=== PATIENT | female | born 1995 | race Caucasian/White ===

== ENCOUNTER 2016-10-15 05:39 | Emergency (ER) | payer OTHER ==
[2016-10-15 06:57] LABS: PLATELET COUNT 240 x10^3mcL (130-400)
[2016-10-15 06:59] LABS: CALCIUM 9.9 mg/dL (8.5-10.1); CARBON DIOXIDE 27.3 mmol/L (21-32); CHLORIDE SERUM 103 mmol/L (98-107); CREATININE SERUM 0.5 mg/dL (0.6-1.0); GFR1 > 60 mL/min; GLUCOSE SERUM 109 mg/dL (74-106); POTASSIUM SERUM 3.9 mmol/L (3.5-5.1); SODIUM SERUM 140 mmol/L (136-145)
[2016-10-15 07:00] LABS: UA SPECIFIC GRAVITY 1.025 (1.005-1.035); microscopic required? YES; urine erythrocyte 1+ (NEGATIVE)
[2016-10-15 07:03] LABS: ALBUMIN 3.9 g/dL (3.4-5.0); ALKALINE PHOSPHATASE 186 U/L (46-116); ALT/SGPT 39 U/L (14-59); AST/SGOT 37 U/L (15-37); BILIRUBIN TOTAL 0.7 mg/dL (0.20-1.00); LIPASE 90 IU/L (73-393)
[2016-10-15 07:05] LABS: BASOPHIL % 4.1 % (0-2)
[2016-10-15 07:19] LABS: TOTAL PROTEIN, SERUM 8.3 g/dL (6.4-8.2)
[2016-10-15 09:54] VITALS: BP 128/81
== END 2016-10-15 09:54 | disposition home or self-care (01) ==
LOC: ED 05:39
PROVIDERS: Emergency Medicine
DX: R10.13 Epigastric pain (principal); L71.0 Perioral dermatitis
CPT/HCPCS: J1885; J2405; J7030; Q0092

== ENCOUNTER 2017-01-13 01:00 | Emergency (ER) | payer OTHER ==
[2017-01-13 01:47] VITALS: BP 131/80
== END 2017-01-13 01:47 | disposition home or self-care (01) ==
LOC: ED 01:00
DX: S60.111A Contusion of right thumb with damage to nail, initial encounter (principal); X58.XXXA Exposure to other specified factors, initial encounter; Y93.89 Activity, other specified; Y99.8 Other external cause status; Y92.89 Other specified places as the place of occurrence of the external cause
CPT/HCPCS: 90715; A4570

== ENCOUNTER 2017-09-07 09:36 | Emergency (ER) | payer OTHER ==
[~2017-09-07] VITALS: Ht 162.6 cm; Wt 88.9 kg
[2017-09-07 09:53] VITALS: Ht 162.6 cm; Wt 88.9 kg
[2017-09-07 11:07] LABS: BASOPHIL % 0.6 % (0-2); PLATELET COUNT 275 x10^3mcL (130-400)
[2017-09-07 11:14] LABS: CARBON DIOXIDE 25.1 mmol/L (21-32); CHLORIDE SERUM 103 mmol/L (98-107); CREATININE SERUM 0.7 mg/dL (0.6-1.0); GFR1 > 60 mL/min; GLUCOSE SERUM 122 mg/dL (74-106); POTASSIUM SERUM 3.7 mmol/L (3.5-5.1); SODIUM SERUM 138 mmol/L (136-145)
[2017-09-07 11:44] VITALS: BP 128/67
== END 2017-09-07 11:44 | disposition home or self-care (01) ==
LOC: ED 09:36
PROVIDERS: Emergency Medicine
DX: R51 Headache (principal); I10 Essential (primary) hypertension; R42 Dizziness and giddiness; R11.0 Nausea; R68.83 Chills (without fever)
CPT/HCPCS: 36415; J0780; J1885

== ENCOUNTER 2018-05-08 06:26 | Emergency (ER) | payer OTHER ==
[~2018-05-08] VITALS: Ht 165.1 cm; Wt 88.0 kg
[2018-05-08 07:48] LABS: BASOPHIL % 0.3 % (0-2); PLATELET COUNT 255 x10^3mcL (130-400); RED CELL DISTRIBUTION WIDTH 13.3 % (11.5-14.5)
[2018-05-08 07:49] LABS: CALCIUM 8.8 mg/dL (8.5-10.1); CARBON DIOXIDE 26.2 mmol/L (21-32); CHLORIDE SERUM 106 mmol/L (98-107); CREATININE SERUM 0.9 mg/dL (0.6-1.0); GFR1 > 60 mL/min; GLUCOSE SERUM 101 mg/dL (74-106); SODIUM SERUM 141 mmol/L (136-145)
[2018-05-08 07:54] LABS: ALBUMIN 3.7 g/dL (3.4-5.0); ALKALINE PHOSPHATASE 127 U/L (46-116); ALT/SGPT 28 U/L (14-59); AST/SGOT 39 U/L (15-37); BILIRUBIN TOTAL 0.2 mg/dL (0.20-1.00); LIPASE 102 IU/L (73-393); TOTAL PROTEIN, SERUM 8.3 g/dL (6.4-8.2)
[2018-05-08 10:43] VITALS: BP 110/69
== END 2018-05-08 10:43 | disposition home or self-care (01) ==
LOC: ED 06:26
PROVIDERS: Emergency Medicine
DX: K29.70 Gastritis, unspecified, without bleeding (principal); K59.00 Constipation, unspecified
CPT/HCPCS: 36415; J1885; Q0092

== ENCOUNTER 2018-12-07 09:31 | Emergency (ER) | payer OTHER | END 2018-12-07 13:05 | disposition home or self-care (01) | LOC: ED 09:31 ==

== ENCOUNTER 2019-06-14 20:03 | Emergency (ER) | payer OTHER ==
[~2019-06-14] VITALS: Ht 165.1 cm; Wt 90.3 kg
[2019-06-14 20:07] VITALS: Ht 165.1 cm; Wt 90.3 kg
[2019-06-14 20:35] VITALS: BP 122/87
== END 2019-06-14 20:35 | disposition home or self-care (01) ==
LOC: ED 20:03
DX: H53.149 Visual discomfort, unspecified (principal)

== ENCOUNTER 2019-12-26 11:45 | Emergency (ER) | payer OTHER ==
[~2019-12-26] VITALS: Ht 165.1 cm; Wt 96.2 kg
[2019-12-26 11:54] VITALS: Ht 165.1 cm; Wt 96.2 kg
[2019-12-26 12:28] LABS: microscopic required? NO
[2019-12-26 12:44] LABS: BASOPHIL % 0.7 % (0-2); PLATELET COUNT 262 x10^3mcL (130-400); RED CELL DISTRIBUTION WIDTH 13.2 % (11.5-14.5)
[2019-12-26 12:44] LABS: urine erythrocyte NEGATIVE (NEGATIVE)
[2019-12-26 13:33] LABS: ALBUMIN 3.1 g/dL (3.4-5.0); ALKALINE PHOSPHATASE 62 U/L (46-116); ALT/SGPT 11 U/L (14-59); AST/SGOT 12 U/L (15-37); BILIRUBIN TOTAL 0.2 mg/dL (0.20-1.00); CARBON DIOXIDE 23.5 mmol/L (21-32); CHLORIDE SERUM 103 mmol/L (98-107); CREATININE SERUM 0.6 mg/dL (0.6-1.0); GFR1 > 60 mL/min; GLUCOSE SERUM 117 mg/dL (74-106); LIPASE 76 IU/L (73-393); POTASSIUM SERUM 3.4 mmol/L (3.5-5.1); SODIUM SERUM 137 mmol/L (136-145); TOTAL PROTEIN, SERUM 7.1 g/dL (6.4-8.2)
[2019-12-26 14:34] VITALS: BP 122/80
== END 2019-12-26 14:35 | disposition home or self-care (01) ==
LOC: ED 11:45
PROVIDERS: Emergency Medicine
DX: O26.892 Other specified pregnancy related conditions, second trimester (principal); R10.9 Unspecified abdominal pain; Z3A.15 15 weeks gestation of pregnancy
CPT/HCPCS: 36415